=== PATIENT | male | born 1980 | race Caucasian/White ===

== ENCOUNTER 2024-03-27 12:50 | Emergency (ER) | payer BC, SELFPAY ==
[2024-03-27 12:51] VITALS: BP 149/96; PULSE 99; RESP 18; TEMP 36.9; O2SAT 100; BMI 27.1
--- NOTE | 2024-03-27 12:57 | ED_ITS ---
Discharge Plan Disposition Patient Disposition: Home, Self-Care Condition: Good Prescriptions Prescriptions: New naproxen 500 mg tablet 500 mg PO BID 10 Days Qty: 20 0RF ondansetron 4 mg tablet,disintegrating 4 mg PO Q8H PRN (Reason: nausea and vomiting) 4 Days Qty: 12 0RF Referrals Follow up/Referrals: Provider,Referral, [Referring] - See instructions Activity Restrictions/Add. Instructions Additional Instructions/Restrictions: You were evaluated in the emergency department today. You were diagnosed with epiploic appendagitis, which is inflammation of small projections along your colon. For this, we are prescribing you an anti-inflammatory to take for 10 days. I also sent in Zofran in case you need it for nausea and vomiting. Return to the emergency department for new or worsening symptoms. Clinical Impressions Clinical Impression: Epiploic appendagitis Instructions Patient Instructions: DI for Acute Abdominal Pain Discharge ED Provider: Pearl Carreno General Adult HPI <Jono Larios MD - Last Filed: 03/27/24 16:48> General Chief complaint: Abdominal Pain Stated complaint: lower left abd pain Time Seen by Provider: 03/27/24 12:57 History of Present Illness HPI narrative: The patient presents with a chief complaint of stomach pain that began approximately four to five days ago. The pain is described as sharp and localized, worsening significantly over the past two days. The patient notes that the pain is particularly exacerbated by movement, such as getting out of a truck, but is not noticeable when sitting still. There is no reported radiation of the pain to other areas such as the back or groin. The patient denies any previous episodes of similar pain and has no history of abdominal surgeries. There are no accompanying symptoms of nausea, vomiting, fever, blood in stools, or pain with urination. The patient mentions frequent diarrhea, which is a longstanding issue, not believed to be related to any medications. Currently, the patient is not on any medications, including semaglutide. Please note that above description of symptoms, in this electronic medical record under categorization of recalled from ER triage doctor by RN are reflective of an initial nursing assessment, however, is not reflective of my full history and physical exam that was personally taken and clarified. Consequentially, this preceding description of symptoms, which may include the patient's categorized chief complaint in the EMR, do not reflect my personal clinical impression, and the ultimate description of history of present illness and patient stated complaints should be deferred to this section of the note. Unless stated otherwise or congruent with this section of the note, additional signs, symptoms, or incongruence should be interpreted as inaccurate with my clinical impression. Related Data Previous Rx's Medication Instructions Recorded naproxen 500 mg tablet 500 mg PO BID 10 days #20 tabs 03/27/24 ondansetron 4 mg disintegrating 4 mg PO Q8H PRN nausea and 03/27/24 tablet vomiting 4 days #12 tabs Allergies Allergy/AdvReac Type Severity Reaction Status Date / Time No Known Allergies Allergy Verified 03/27/24 13:12 PFSH <Jono Larios MD - Last Filed: 03/27/24 16:48> [facility] Disclaimer: The information contained in this section may have been updated after the patient was seen, as this information can be updated by other users. Social History (Updated 03/27/24 @ 16:48 by Jono Larios MD) Smoking Status: Never smoker alcohol intake: former current occupational status: other Travel in the last 8 weeks: None <Jono Larios MD - Last Filed: 03/27/24 16:48> ROS Obtained: Yes other As per HPI Physical Exam <Jono Larios MD - Last Filed: 03/27/24 16:48> General General appearance: alert and in no apparent distress Head Head exam: atraumatic and normocephalic Eye Eye exam: Present normal appearance Neck Neck exam: Present normal inspection Chest Chest inspection: Present normal inspection and symmetric chest wall rise Respiratory Respiratory exam: Present normal lung sounds bilaterally; Absent respiratory distress Cardiovascular Cardiovascular exam: Present regular rate and normal rhythm Abdominal Exam Abdominal exam: Present soft and tenderness; Absent guarding, rebound or rigidity Abdominal tenderness: Present LLQ and mild Neurological Exam Neurological exam: Present alert and oriented X3 Psychiatric Psychiatric exam: Present normal affect and normal mood Skin Skin exam: Present warm and dry Medical Decision Making <Jono Larios MD - Last Filed: 03/27/24 16:48> Medical Records Medical records reviewed: Yes I reviewed the patient's medical records. Panchito Inquiry Pt receiving controlled substance: No Vital Signs: 03/27/24 12:51 03/27/24 17:15 Temperature 98.5 F 98.5 F Temperature Source Oral Oral Pulse Rate 83 Pulse Rate [Left Radial] 99 H Respiratory Rate 18 18 Blood Pressure 140/72 Blood Pressure [Right Arm] 149/96 H Blood Pressure Mean [Right Arm] 113 Blood Pressure Source Automatic Cuff Blood Pressure Source [Right Arm] Automatic Cuff Blood Pressure Position Sitting Blood Pressure Position [Right Arm] Sitting 02 Sat by Pulse Oximetry 100 Oxygen Delivery Method Room Air Room Air Lab Data Lab Results 03/27/24 13:07: Urine Color Yellow, Urine Appearance Clear, Urine pH 7.0, Ur Specific [place] 1.020, Urine Protein 1+, Urine Glucose (UA) Negative, Urine Ketones Trace, Urine Blood 2+, Urine Nitrate Negative, Urine Bilirubin 1+ A, Urine Urobilinogen 1.0, Ur Leukocyte Esterase Negative, Urine RBC 3-5, Urine WBC Occasional, Ur Squamous Epith Cells Occasional, Calcium Oxalate Crystal Trace, Urine Bacteria None 03/27/24 13:40: WBC 7.8, RBC 5.31, Hgb 16.1, Hct 47.4, MCV 89.2, MCH 30.3, MCHC 33.9, RDW 13.7, Plt Count 211, MPV 7.7, Neut % (Auto) 70.0, Lymph % (Auto) 19.4, [place] % (Auto) 8.9, Eos % (Auto) 1.1, Baso % (Auto) 0.5, Neut # (Auto) 5.5, Lymph # (Auto) 1.5, [place] # (Auto) 0.7, Eos # (Auto) 0.1, Baso # (Auto) 0.0, Sodium 134 L, Potassium 4.1, Chloride 101, Carbon Dioxide 27, Anion Gap 10.1, BUN 11, Creatinine 0.80, Estimated Creat Clear 149, Estimated GFR 106, Est GFR ( Amer) 128, Glucose 120 H, Calcium 9.1, Total Bilirubin 0.5, AST 30, ALT 35, Alkaline Phosphatase 79, Total Protein 7.0, Albumin 4.1, Globulin 2.9, Albumin/Globulin Ratio 1.4 03/27/24 13:40 03/27/24 13:40 Orders (Tests/Meds): ED MEDICATIONS Discontinued Medications Generic Name Dose Route Start Last Admin Trade Name Freq PRN Reason Stop Dose Admin Iopamidol 75 ml 03/27/24 14:23 03/27/24 14:24 Iopamidol-370 (76%);100ml Bottle IV 03/27/24 14:24 75 ml ONCE ONE Administration Ketorolac Tromethamine 15 mg 03/27/24 13:31 03/27/24 13:44 Ketorolac 30mg/Ml Vial IV 03/27/24 13:32 15 mg ONCE ONE Administration Sodium Chloride 10 ml 03/27/24 14:23 03/27/24 14:23 Sodium Chloride 0.9% 10ml Syr (Rad Only) IV 03/27/24 14:24 10 ml ONCE ONE Administration ORDERS Category Date Time Status CT abdomen pelvis w con Stat Cat Scan 03/27/24 13:31 Completed CBC w/Auto Diff [Complete Blood Count Auto Diff] Stat Lab 03/27/24 13:40 Completed CMP [Comprehensive Metabolic Panel] Stat Lab 03/27/24 13:40 Completed Urinalysis and Microscopic Stat Lab 03/27/24 13:07 Completed Medical Decision Narrative: Patient with history and exam per above presenting for evaluation of left lower quadrant abdominal pain Diagnoses considered include Diverticulitis, ureterolithiasis, bowel obstruction, bowel perforation, hernia, epiploic appendagitis, constipation, pyelonephritis, acute cystitis ED workup and treatment included: CT abdomen pelvis with IV contrast, urinalysis, CBC, CMP, ketorolac Labs were independently interpreted by me, significant for urinalysis with hematuria, calcium oxalate crystals, no bacteriuria, no leukocytosis Imaging pending at this time. Care was transferred to incoming physician. <Pearl Carreno, DO - Last Filed: 03/27/24 23:14> Vital Signs: 03/27/24 12:51 03/27/24 17:15 Temperature 98.5 F 98.5 F Temperature Source Oral Oral Pulse Rate 83 Pulse Rate [Left Radial] 99 H Respiratory Rate 18 18 Blood Pressure 140/72 Blood Pressure [Right Arm] 149/96 H Blood Pressure Mean [Right Arm] 113 Blood Pressure Source Automatic Cuff Blood Pressure Source [Right Arm] Automatic Cuff Blood Pressure Position Sitting Blood Pressure Position [Right Arm] Sitting 02 Sat by Pulse Oximetry 100 Oxygen Delivery Method Room Air Room Air Lab Data Lab Results 03/27/24 13:07: Urine Color Yellow, Urine Appearance Clear, Urine pH 7.0, Ur Specific [place] 1.020, Urine Protein 1+, Urine Glucose (UA) Negative, Urine Ketones Trace, Urine Blood 2+, Urine Nitrate Negative, Urine Bilirubin 1+ A, Urine Urobilinogen 1.0, Ur Leukocyte Esterase Negative, Urine RBC 3-5, Urine WBC Occasional, Ur Squamous Epith Cells Occasional, Calcium Oxalate Crystal Trace, Urine Bacteria None 03/27/24 13:40: WBC 7.8, RBC 5.31, Hgb 16.1, Hct 47.4, MCV 89.2, MCH 30.3, MCHC 33.9, RDW 13.7, Plt Count 211, MPV 7.7, Neut % (Auto) 70.0, Lymph % (Auto) 19.4, [place] % (Auto) 8.9, Eos % (Auto) 1.1, Baso % (Auto) 0.5, Neut # (Auto) 5.5, Lymph # (Auto) 1.5, [place] # (Auto) 0.7, Eos # (Auto) 0.1, Baso # (Auto) 0.0, Sodium 134 L, Potassium 4.1, Chloride 101, Carbon Dioxide 27, Anion Gap 10.1, BUN 11, Creatinine 0.80, Estimated Creat Clear 149, Estimated GFR 106, Est GFR ( Amer) 128, Glucose 120 H, Calcium 9.1, Total Bilirubin 0.5, AST 30, ALT 35, Alkaline Phosphatase 79, Total Protein 7.0, Albumin 4.1, Globulin 2.9, Albumin/Globulin Ratio 1.4 Orders (Tests/Meds): ED MEDICATIONS Discontinued Medications Generic Name Dose Route Start Last Admin Trade Name Freq PRN Reason Stop Dose Admin Iopamidol 75 ml 03/27/24 14:23 03/27/24 14:24 Iopamidol-370 (76%);100ml Bottle IV 03/27/24 14:24 75 ml ONCE ONE Administration Ketorolac Tromethamine 15 mg 03/27/24 13:31 03/27/24 13:44 Ketorolac 30mg/Ml Vial IV 03/27/24 13:32 15 mg ONCE ONE Administration Sodium Chloride 10 ml 03/27/24 14:23 03/27/24 14:23 Sodium Chloride 0.9% 10ml Syr (Rad Only) IV 03/27/24 14:24 10 ml ONCE ONE Administration ORDERS Category Date Time Status CT abdomen pelvis w con Stat Cat Scan 03/27/24 13:31 Completed CBC w/Auto Diff [Complete Blood Count Auto Diff] Stat Lab 03/27/24 13:40 Completed CMP [Comprehensive Metabolic Panel] Stat Lab 03/27/24 13:40 Completed Urinalysis and Microscopic Stat Lab 03/27/24 13:07 Completed Medical Decision Narrative: Patient with history and exam per above presenting for evaluation of left lower quadrant abdominal pain Diagnoses considered include Diverticulitis, ureterolithiasis, bowel obstruction, bowel perforation, hernia, epiploic appendagitis, constipation, pyelonephritis, acute cystitis ED workup and treatment included: CT abdomen pelvis with IV contrast, urinalysis, CBC, CMP, ketorolac Labs were independently interpreted by me, significant for urinalysis with hematuria, calcium oxalate crystals, no bacteriuria, no leukocytosis Imaging pending at this time. Care was transferred to incoming physician. DO Wai: On my assessment of the patient, he is resting comfortably in no acute distress. Nonsurgical abdomen. He does have 2-5 red blood cells in the urine without urinary symptoms at this time. Labs demonstrated no acutely concerning abnormalities. CT scan concerning for epiploic appendagitis. At this time, feel he is appropriate for discharge home with prescription for anti-inflammatory to treat pain and epiploic appendagitis. He is also given prescription for Zofran. He was given strict return precautions and instructions for close follow-up. He was discharged after all questions were answered Critical Care <Jono Larios MD - Last Filed: 03/27/24 16:48> Critical Care Time Critical Care Time: No
--- NOTE | 2024-03-27 13:31 | CT_ITS ---
FINAL REPORT TECHNIQUE: Postcontrast axial images through the abdomen and pelvis were performed. This study was performed with techniques to keep radiation doses as low as reasonably achievable, (ALARA). Individualized dose reduction techniques using automated exposure control or adjustment of mA and/or kV according to the patient's size were employed. CLINICAL HISTORY: LLQ pain FINDINGS: Abdomen: There is mild bibasilar atelectasis. The liver is normal in size and attenuation. There is mild nonspecific gallbladder wall thickening. The spleen is unremarkable. The adrenals are normal. The pancreas is unremarkable. The kidneys enhance appropriately. The aorta is normal in caliber. No free fluid or adenopathy is identified. No findings for mechanical bowel obstruction are identified. Pelvis: The appendix is normal. There is a focus of fat adjacent to the descending colon with adjacent inflammation. The appearance is consistent with epiploic appendagitis. The urinary bladder is unremarkable. No free fluid, free air, abscess or adenopathy is identified. IMPRESSION: Epiploic appendagitis. Reviewed, Interpreted and Dictated by Charles Bennett III, MD Transcribed by Nisha Bansal Authenticated and [facility]
[2024-03-27] MEDS: KETOROLAC 30MG/ML VIAL 15 MG IV (13:44)
[2024-03-27 13:54] LABS: Appearance,Urine CLEAR (Clear); Blood, Urine 2+ (Negative); Color,Urine YELLOW (Yellow); Glucose,Urine (UA) Negative (Negative); Ketones,Urine TRACE (Negative); Leukocyte Esterase,Urine Negative (Negative); Microscopic, Urine URINE MICROSCOPIC (MICROSCOPIC); Nitrate,Urine Negative (Negative); Protein,Urine 1+ (Negative)
[2024-03-27 13:56] LABS: Chloride 101 mmol/L (98-107); Potassium 4.1 mmoL/L (3.5-5.1); Sodium 134 mmol/L (136-145)
[2024-03-27 13:59] LABS: Alanine Aminotransferase 35 U/L (12-78); Albumin Level 4.1 g/dl (3.5-5.0); Albumin/Globulin Ratio 1.4 (1.1-1.8); Alkaline Phosphatase 79 U/L (38-126); Anion Gap 10.1 mEq/L (5-15); Aspartate Amino Transferase 30 U/L (17-59); Bilirubin,Total 0.5 mg/dl (0.2-1.3); Blood Urea Nitrogen 11 mg/dl (9-20); Carbon Dioxide 27 mmol/L (22.0-30.0); Creatinine Clearance Estimated 149 mL/min (50-200); Estimated Glomerular Filt Rate 106 ml/min (>60); GFR (African American) 128 ML/MIN (>60); Globulin 2.9 g/dL (1.3-3.2)
[2024-03-27 14:00] LABS: Calcium 9.1 mg/dl (8.4-10.2); Glucose 120 mg/dl (74-100)
[2024-03-27 14:16] LABS: Basophils % 0.5 % (0.1-2.0); Eosinophils # 0.1 K/mm3 (0.0-0.4); Eosinophils % 1.1 % (0.1-12.0); Hematocrit 47.4 % (42.0-52.0); Hemoglobin 16.1 g/dL (14.1-18.0); Lymphocytes # 1.5 K/mm3 (0.7-4.5); Lymphocytes % 19.4 % (10-50); Mean Corpuscular HGB Conc 33.9 g/dL (31.8-35.4); Mean Corpuscular Hemoglobin 30.3 pg (27.0-31.2); Mean Corpuscular Volume 89.2 fl (80-94); Mean Platelet Volume 7.7 fl (7.4-10.4); Monocytes # 0.7 K/mm3 (0.1-1.0); Monocytes % 8.9 % (1.7-9.3); Neutrophils # 5.5 K/mm3 (1.8-7.8); Platelet Count 211 K/mm3 (142-424); Red Blood Count 5.31 M/mm3 (4.60-6.20); Red Cell Distribution Width 13.7 % (11.5-17.5); White Blood Count 7.8 K/mm3 (4.8-10.8)
[2024-03-27] MEDS: SODIUM CHLORIDE 0.9% 10ML SYR (RAD ONLY) 10 ML IV (14:23)
[2024-03-27] MEDS: IOPAMIDOL-370 (76%);100ML BOTTLE 75 ML IV (14:24)
[2024-03-27 14:28] LABS: Bilirubin,Urine 1+ (Negative)
[2024-03-27 15:51] LABS: Squamous Epithelial Cell,Urine Occasional #/hpf (0-5); WBC,Urine Occasional #/hpf (0-3)
[2024-03-27 15:52] LABS: Calcium Oxalate Crystals,Urine Trace /lpf
[2024-03-27 17:15] VITALS: BP 140/72; PULSE 83; RESP 18; TEMP 36.9; O2SAT 100
== END 2024-03-27 17:16 | disposition home or self-care (01) ==
PROVIDERS: Emergency Medicine; Emergency Provider Emergency Medicine; PCP Family Medicine
DX: R10.32 Left lower quadrant pain; K63.89 Other specified diseases of intestine
CPT/HCPCS: 74177; 80053; 81001; 85025; 96374; 99284; Q9967